=== PATIENT | female | born 1985 | race Caucasian/White ===

== ENCOUNTER 2017-09-02 08:07 | Emergency (ER) | payer SELFPAY ==
[2017-09-02] MEDS ORDERED: KETOROLAC TROMETHAMINE INJ/PF 30 MG/1 ML SDV IM ONE (08:48)
--- NOTE | 2017-09-02 09:02 | ER Document Report ---
ED Oral Problem - General Chief Complaint: Toothache Stated Complaint: FACE PAIN Time Seen by Provider: 09/02/17 08:30 Mode of Arrival: Ambulatory Information source: Patient TRAVEL OUTSIDE OF THE [place] IN LAST 30 DAYS: No - HPI Patient complains to provider of: Toothache Onset: Yesterday Notes: Patient is here with left sided dental pain started yesterday. No injury. No facial swelling. No difficulty breathing or swallowing. No fever. No nausea, vomiting, diarrhea. States that she it hurts to eat. Nothing seems to make it better. She denies any numbness, tingling, weakness. No chest pain or shortness of breath. No abdominal pain. She denies any other complaints at this time. - Related Data Allergies/Adverse Reactions: No Known Allergies Allergy (Verified 04/06/14 18:44) Past Medical History - Social History Smoking Status: Current Every Day Smoker Chew tobacco use (# tins/day): No Frequency of alcohol use: Rare Drug Abuse: None Family History: Reviewed & Not Pertinent Patient has suicidal ideation: No Patient has homicidal ideation: No Renal/ Medical History: Denies: Hx Peritoneal Dialysis Psychiatric Medical History: Reports: Hx Bipolar Disorder, Hx Depression - anxiety Past Surgical History: Reports: Hx Section - x1 - Immunizations Hx Diphtheria, Pertussis, Tetanus Vaccination: No Review of Systems - Review of Systems -: Yes All other systems reviewed and negative Physical Exam - Vital signs Vitals: Temp Pulse Resp BP Pulse Ox 98.6 F 106 H 22 H 160/120 H 97 09/02/17 08:15 09/02/17 08:15 09/02/17 08:15 09/02/17 08:15 09/02/17 08:15 - Notes Notes: GENERAL: alert, cooperative, nontoxic, no distress. Patient appears uncomfortable. Holding the left side of her face. HEAD: normocephalic, atraumatic EYES: conjunctiva pink without discharge, no external redness or swelling. EARS: no external swelling, no external redness. Canals are clear. No mastoid tenderness or redness. TMs are pearly golden with normal landmarks, no erythema, no perforation. NOSE: atraumatic, no external swelling MOUTH/THROAT: mucous membranes moist and pink. Patient is noted to have large cavity to the left upper and lower second molars. There is no gum swelling. No drainage. She has no sublingual swelling or induration. No trismus or drooling. Posterior pharynx is unremarkable. Uvula is midline. NECK: soft, supple, full range of motion, no meningismus. CHEST: no distress, lungs clear and equal throughout. No wheezing, rales, rhonchi. CARDIAC: regular rhythm, mild tachycardia, no murmur, normal capillary refill, normal pulses. BACK: full range of motion, no CVA tenderness. EXTREMITIES: full range of motion of all extremities. No redness, no swelling. NEURO: alert and oriented 3, no focal deficits, full range of motion of all extremities. PYSCH: appropriate mood, affect. Patient is cooperative. SKIN: pink, warm, dry, no rash. Course - Re-evaluation Re-evalutation: 09/02/17 08:58 Patient is nontoxic appearing stable vitals. She is here with left-sided dental pain. She is noted to have dental cavity to her left upper and lower second molars. There is no abscess. There is no sublingual swelling or induration. No sign of Colin's angina. She is in no respiratory distress. She is swallowing normally. Patient does appear to be somewhat uncomfortable. He will be given a shot of Toradol for pain. I will discharge patient home with Emir Sue with dental referrals and instructions to follow-up with a dentist at the next available appointment. She should follow-up sooner if she develops worsening pain, fever, swelling, difficulty breathing or swallowing, persistent vomiting, or for any further concerns. The patient's emergency department workup and current diagnosis were explained to the patient and or family. Follow-up instructions were provided. Medications if prescribed were discussed. Instructions for when to return to the emergency department including specific worrisome symptoms were discussed with the patient and/or family. The patient is noted to have elevated blood pressure during today's emergency department visit. The patient was informed of this finding. The patient was instructed that this may be related to pre-hypertension and requires further evaluation with a primary care provider. The patient has no hypertensive symptoms at this time. - Vital Signs Vital signs: Temp Pulse Resp BP Pulse Ox 98.6 F 106 H 22 H 160/120 H 97 09/02/17 08:15 09/02/17 08:15 09/02/17 08:15 09/02/17 08:15 09/02/17 08:15 Discharge - Discharge Clinical Impression: Pain due to dental caries Condition: Stable Disposition: HOME, SELF-CARE Instructions: [facility], Toothache ([facility]), Penicillin V K ([facility]), Dentist Additional Instructions: Take medications as prescribed. Follow-up with a dentist at the next available appointment. Follow-up sooner for worsening pain, fever, swelling, difficulty breathing or swallowing, or for any further concerns. Your blood pressure was elevated during today's visit. Have this rechecked with your doctor. Prescriptions: Diclofenac Sodium [Voltaren 50 Mg Tablet.] 50 mg PO BID #20 tablet. Penicillin V Potassium [Penicillin Vk 500 mg Tablet] 500 mg PO BID #20 tablet Forms: Elevated Blood Pressure, Smoking Cessation Education Referrals: [facility] [Provider Group] - Follow up as needed
[2017-09-02 09:15] VITALS: BP 172/86
== END 2017-09-02 09:38 | disposition home or self-care (01) ==
LOC: ER 08:07
DX: K02.9 Dental caries, unspecified (principal); K08.89 Other specified disorders of teeth and supporting structures; F17.200 Nicotine dependence, unspecified, uncomplicated; R03.0 Elevated blood-pressure reading, without diagnosis of hypertension
CPT/HCPCS: 99282; 96372; J1885

== ENCOUNTER 2017-10-01 15:48 | Emergency (ER) | payer SELFPAY ==
[2017-10-01] MEDS ORDERED: METOCLOPRAMIDE HCL INJ/PF 10 MG/2 ML SDV IV ONE (16:47)
[2017-10-01] MEDS ORDERED: DIPHENHYDRAMINE HCL 50 MG/ML VIAL IV ONE (16:48)
--- NOTE | 2017-10-01 16:50 | ER Document Report ---
ED General - General Chief Complaint: Headache Stated Complaint: BLOOD PRESSURE ISSUES Time Seen by Provider: 10/01/17 16:41 Mode of Arrival: Ambulatory Information source: Patient Notes: This is a 32-year-old female that presents to the emergency room with left- sided headache. Patient works at [employer] and was talking on the phone when she had sudden headache. This was immediately prior to arrival. She does report some nausea and dizziness. She denies any fever, chills, neck pain. Patient denies any weakness of the upper extremities. TRAVEL OUTSIDE OF THE [place] IN LAST 30 DAYS: No - HPI Onset: Just prior to arrival Onset/Duration: Sudden Quality of pain: No pain Severity: None Pain Level: Denies Associated symptoms: denies: Chest pain, Fever, Shortness of breath Exacerbated by: Denies Relieved by: Denies Similar symptoms previously: No Recently seen / treated by doctor: No - Related Data Allergies/Adverse Reactions: No Known Allergies Allergy (Verified 04/06/14 18:44) Past Medical History - General Information source: Patient - Social History Smoking Status: Never Smoker Cigarette use (# per day): No Chew tobacco use (# tins/day): No Frequency of alcohol use: None Drug Abuse: None Lives with: Spouse/Significant other Family History: Reviewed & Not Pertinent Patient has suicidal ideation: No Patient has homicidal ideation: No - Medical History Medical History: Negative Renal/ Medical History: Denies: Hx Peritoneal Dialysis Psychiatric Medical History: Reports: Hx Bipolar Disorder, Hx Depression - anxiety Past Surgical History: Reports: Hx Section - x1 - Immunizations Hx Diphtheria, Pertussis, Tetanus Vaccination: No Review of Systems - Review of Systems Constitutional: denies: Chills, Fever EENT: No symptoms reported Cardiovascular: No symptoms reported Respiratory: No symptoms reported Gastrointestinal: No symptoms reported Genitourinary: No symptoms reported Female Genitourinary: No symptoms reported Musculoskeletal: No symptoms reported Skin: No symptoms reported Hematologic/Lymphatic: No symptoms reported Neurological/Psychological: See HPI Physical Exam - Vital signs Vitals: Temp Pulse Resp BP Pulse Ox 98.2 F 97 22 H 160/94 H 99 10/01/17 16:01 10/01/17 16:01 10/01/17 16:01 10/01/17 16:01 10/01/17 16:01 Notes: Physical exam: GENERAL: 82-year-old female, alert and oriented 3, no acute distress HEAD: Atraumatic, normocephalic. EYES: Pupils equal round and reactive to light, extraocular movements intact, sclera anicteric, conjunctiva are normal. ENT: TMs normal, nares patent, oropharynx clear without exudates. Moist mucous membranes. NECK: Normal range of motion, supple without obvious mass or JVD. LUNGS: Breath sounds clear to auscultation bilaterally and equal. No wheezes rales or rhonchi. HEART: Regular rate and rhythm without murmurs, rubs or gallops. ABDOMEN: Soft, normoactive bowel sounds. No tenderness to palpation. No guarding, no rebound. No masses appreciated. EXTREMITIES: Normal range of motion, no pitting or edema. No clubbing or cyanosis. NEUROLOGICAL: Cranial nerves II through XII grossly intact. Normal speech, moving all extremities. Motor 5/5, sensory grossly intact, cerebellar (finger to nose) is good. Patient's neck is supple. PSYCH: Normal mood, normal affect. SKIN: Warm, Dry, normal turgor, no rashes or lesions noted. Course - Re-evaluation Re-evalutation: 10/01/17 20:18 Note: Patient was given IV Reglan and IV Benadryl for the headache. She has had significant improvement. She states she feels much better. Head CT showed no acute bleed. I did discuss with her the workup would include a spinal tap to reach a sensitivity of 100% rule out a bleed (she is absolutely against this) . Of significance, the patient's headache started shortly before arrival so was done early in the process which greatly enhances the sensitivity of the test. Patient was hypertensive initially and her blood pressures down. I will give her referral to the [facility] for blood pressure check. - Vital Signs Vital signs: Temp Pulse Resp BP Pulse Ox 98.3 F 92 18 153/97 H 98 10/01/17 20:26 10/01/17 20:26 10/01/17 20:26 10/01/17 20:26 10/01/17 20:26 - Laboratory Result Diagrams: 10/01/17 17:35 10/01/17 18:26 Laboratory results interpreted by me: 10/01/17 17:35 WBC 12.0 H Absolute Neutrophils 8.9 H - Diagnostic Test Radiology reviewed: Image reviewed, Reports reviewed - CT of the head shows no acute bleed Discharge - Discharge Clinical Impression: Headache, Pre-hypertension Condition: Stable Disposition: HOME, SELF-CARE Instructions: Headache ([facility]), Reglan ([facility]) Additional Instructions: As we discussed, the CT had look quite good today. Your labs look very good. I would rest, drink plenty fluids, take headache medicine as prescribed. You can take ibuprofen as well. Your blood pressure was elevated initially and it did come down nicely, but it is still considered in the pre-hypertension range. I recommend getting a recheck blood pressure in the [facility]. Return to the emergency room for worsening headache, fever (temperature greater than 100.5) or any concerns or getting worse. Prescriptions: Metoclopramide HCl [Reglan 10 mg Tablet] 1 - 2 tab PO ASDIR PRN #14 tablet PRN Reason: Forms: Return to Work Referrals: [facility] [Provider Group] - Follow up as needed
--- NOTE | 2017-10-01 17:24 | RADIOLOGY REPORT (SQ) ---
EXAM DESCRIPTION: CT HEAD WITHOUT COMPLETED DATE/TIME: 10/01/2017 5:12 pm REASON FOR STUDY: left sided headache COMPARISON: None. TECHNIQUE: Axial images acquired through the brain without intravenous contrast. Images reviewed wi th bone, brain and subdural windows. Additional sagittal and coronal reconstructions were generated. Images stored on PACS. All CT scanners at this facility use dose modulation, iterative reconstruction, and/or weight based d osing when appropriate to reduce radiation dose to as low as reasonably achievable (ALARA). [facility]: Dose Right [facility]: CareDose [facility]: Dose Right [facility]: Teradose 4D [facility]: Smart Revstr RADIATION DOSE: CT Rad equipment meets quality standard of care and radiation dose reduction techniq ues were employed. CTDIvol: 53.2 mGy. DLP: 991 mGy-cm. mGy. LIMITATIONS: None. FINDINGS: VENTRICLES: Normal size and contour. CEREBRUM: No masses. No hemorrhage. No midline shift. No evidence for acute infarction. Normal gra y/white matter differentiation. No areas of low density in the white matter. CEREBELLUM: No masses. No hemorrhage. No alteration of density. No evidence for acute infarction. EXTRAAXIAL SPACES: No fluid collections. No masses. ORBITS AND GLOBE: No intra- or extraconal masses. Normal contour of globe without masses. CALVARIUM: No fracture. PARANASAL SINUSES: No fluid or mucosal thickening. SOFT TISSUES: No mass or hematoma. OTHER: No other significant finding. IMPRESSION: NORMAL BRAIN CT WITHOUT CONTRAST. EVIDENCE OF ACUTE STROKE: NO. COMMENT: Quality ID # [id number]: Final reports with documentation of one or more dose reduction techniques (e.g., Automated exposure control, adjustment of the mA and/or kV according to patient size, use of iterative reconstruction technique) TECHNICAL DOCUMENTATION: JOB ID: [id number] [employer]- All Rights Reserved Reading location - IP/workstation name: [email or web address]
[2017-10-01 17:43] LABS: ABSOLUTE BASOPHILS # (AUTO) 0.1 10^3/uL (0.0-0.2); ABSOLUTE EOSINOPHILS # (AUTO) 0.3 10^3/uL (0.0-0.6); ABSOLUTE LYMPHOCYTES (AUTO) 2.2 10^3/uL (0.5-4.7); ABSOLUTE MONOCYTES (AUTO) 0.5 10^3/uL (0.1-1.4); ABSOLUTE NEUT (AUTO) 8.9 10^3/uL (1.7-8.2); BASOPHILS % (AUTO) 0.5 % (0-2); EOSINOPHILS % (AUTO) 2.4 % (0-6); HEMATOCRIT 40.4 % (36.0-47.0); HEMOGLOBIN 13.7 g/dL (12.0-15.5); LYMPHOCYTES % (AUTO) 18.2 % (13-45); MEAN CORPUSCULAR HEMOGLOBIN 28.5 pg (27.0-33.4); MEAN CORPUSCULAR HGB CONC 33.9 g/dL (32.0-36.0); MEAN CORPUSCULAR VOLUME 84 fl (80-97); MONOCYTES % (AUTO) 4.3 % (3-13); PLATELET COUNT 358 10^3/uL (150-450); RED BLOOD COUNT 4.81 10^6/uL (3.72-5.28); SEGMENTED NEUTROPHILS % (AUTO) 74.6 % (42-78); TOTAL CELLS COUNTED % (AUTO) 100 %
[2017-10-01 18:49] LABS: ALANINE AMINOTRANSFERASE 32 U/L (9-52); ALBUMIN 3.7 g/dL (3.5-5.0); ALKALINE PHOSPHATASE 108 U/L (38-126); ANION GAP 12 (5-19); ASPARTATE AMINO TRANSFERASE 26 U/L (14-36); BILIRUBIN,DIRECT 0.3 mg/dL (0.0-0.4); BILIRUBIN,TOTAL 0.3 mg/dL (0.2-1.3); BLOOD UREA NITROGEN 16 mg/dL (7-20); CALCIUM 9.3 mg/dL (8.4-10.2); CARBON DIOXIDE 23 mmol/L (22-30); CHLORIDE 107 mmol/L (98-107); GLUCOSE 105 mg/dL (75-110); POTASSIUM 3.9 mmol/L (3.6-5.0); SODIUM 141.5 mmol/L (137-145); TOTAL PROTEIN 6.8 g/dL (6.3-8.2)
[2017-10-01 20:32] VITALS: BP 153/97
== END 2017-10-01 20:31 | disposition home or self-care (01) ==
LOC: ER 15:48
DX: R03.0 Elevated blood-pressure reading, without diagnosis of hypertension (principal); R51 Headache; R11.0 Nausea; R42 Dizziness and giddiness
CPT/HCPCS: 99284; 96374; 96375; 36415; 84702; 85025; 80053; 70450; J1200; J2765

== ENCOUNTER 2018-01-14 05:07 | Emergency (ER) | payer SELFPAY ==
[2018-01-14] MEDS ORDERED: KETOROLAC TROMETHAMINE INJ/PF 30 MG/1 ML SDV IV PRN (06:45)
[2018-01-14] MEDS ORDERED: FENTANYL CITRATE INJ/PF 100 MCG/2 ML AMPUL IV PRN (06:45)
[2018-01-14] MEDS ORDERED: NORMAL SALINE 1000 ML 1,000 ML IV PRN (09:20)
[2018-01-14] MEDS ORDERED: DIPHENHYDRAMINE HCL 50 MG/ML VIAL IV PRN (09:20)
[2018-01-14] MEDS ORDERED: METOCLOPRAMIDE HCL INJ/PF 10 MG/2 ML SDV IV PRN (09:20)
--- NOTE | 2018-01-14 09:56 | ER Document Report ---
Doctor's Note Notes: 01/14/18 09:53 HPI: Room 1: This is a female patient history of migraines to the emergency department for evaluation of headache. States it started 3 days ago. Not the worst headache of her life. Did not occur suddenly. States that it was a slow onset, mild headache and has progressively gotten worse over the last 3 days. She was seen here approximately 2-3 months ago for the same symptoms. At that time she had an MRI of the brain which was unremarkable. Patient states that she has hypertension but does not take anything for it. Having nausea and vomiting. No severe neck stiffness. No fever. Does have photophobia and did have a sense of an aura. Past medical history: Hypertension, migraines Past surgical history: Social history: Endorses tobacco abuse but denies alcohol or drugs FH: Reviewed and negative for SAH or aneurysm Review of systems: Constitutional: denies: Chills, Diaphoresis, Fever, Malaise, Weakness EENT: denies: Eye discharge, Blurred vision, Tearing, Double vision, Nose congestion, Nose discharge, Throat swelling, Mouth pain Cardiovascular: denies: Palpitations, Heart racing, Orthopnea, Dyspnea, Chest pain Respiratory: denies: Cough, Hurts to breathe, Wheezing, Shortness of breath Gastrointestinal: denies: Abdominal pain, Diarrhea,Black stools, bright red blood in stool. Does complain of nausea and vomiting Genitourinary: denies: Burning, Dysuria, Discharge, Frequency, Flank pain, Hematuria Musculoskeletal: denies: Joint pain, Joint swelling, Muscle pain, Muscle stiffness, back pain Hematologic/Lymphatic: denies: Anemia, Easy bleeding, Easy bruising, Blood clots Neurological/Psychological: denies: Confusion, Dementia, Depression, Loss of consciousness. Does complain of migraine headache at this time Skin: No lesions, no masses, no skin breakdown, no abscesses Physical exam: General: Alert no acute distress HEENT: Atraumatic, normocephalic, pupils equal round react to light and accommodation, extraocular muscles are intact, nose is non tender, posterior pharynx is without erythema or exudate. Tongue is unremarkable Heart: Heart with regular rate and rhythm, no murmurs, no rubs, no clicks Lungs: Lungs clear to auscultation bilaterally, no wheezes, rhonchi, rales Abdomen: Abdomen is soft, nontender, nondistended, normal bowel sounds Neuro: cranial nerves II through XII intact, reflexes intact, sensation intact, neg pronator drift, fundoscop exam normal Extremities:Moving all extremities. Equal strength bilaterally in the upper lower extremities. No significant deformity Skin: No lesions. Skin intact Psych: Normal insight. Normal judgment Discharge - Discharge Clinical Impression: Migraine headache with aura Qualifiers: Status migrainosus presence: without status migrainosus Intractability: not intractable Qualified Code(s): G43.109 - Migraine with aura, not intractable, without status migrainosus Hypertension Qualifiers: Hypertension type: unspecified Qualified Code(s): I10 - Essential (primary) hypertension Condition: Good Disposition: HOME, SELF-CARE Instructions: Headache ([facility]), High Blood Pressure ([facility]) Prescriptions: Losartan Potassium [Cozaar 50 mg Tablet] 50 mg PO DAILY 30 Days #30 tablet Ondansetron [Zofran Odt 4 mg Tablet] 1 - 2 tab PO Q4H PRN #15 tab.rapdis PRN Reason: For Nausea/Vomiting Referrals: JAMEL PRADO MD [NO LOCAL MD] - Follow up in 3-5 days Course - Re-evaluation Re-evalutation: 01/14/18 09:56 Feeling much better, had recent neuroimaging which was negative. Not worse KELLER of life. Will d/c on BP meds as well 01/14/18 09:57
[2018-01-14 10:00] VITALS: BP 152/86
[2018-01-14] MEDS ORDERED: KETOROLAC TROMETHAMINE INJ/PF 30 MG/1 ML SDV IV ONE (10:00)
[2018-01-14] MEDS ORDERED: FENTANYL CITRATE INJ/PF 100 MCG/2 ML AMPUL IV ONE (10:00)
[2018-01-14 11:11] LABS: APPEARANCE,URINE CLEAR; BILIRUBIN,URINE NEGATIVE (NEGATIVE); COLOR,URINE YELLOW; GLUCOSE, URINE NEGATIVE (NEGATIVE); KETONES,URINE NEGATIVE (NEGATIVE); LEUKOCYTE ESTERASE,URINE NEGATIVE (NEGATIVE); NITRITE,URINE NEGATIVE (NEGATIVE); PROTEIN,URINE NEGATIVE (NEGATIVE); URINE SPECIFIC GRAVITY 1.019; UROBILINOGEN,URINE NEGATIVE mg/dL (<2.0)
== END 2018-01-14 10:18 | disposition home or self-care (01) ==
LOC: ER 05:07
DX: G43.109 Migraine with aura, not intractable, without status migrainosus (principal); R11.2 Nausea with vomiting, unspecified; I10 Essential (primary) hypertension; Z76.0 Encounter for issue of repeat prescription
CPT/HCPCS: 81001; 81025; 96361; 96374; 96375; 99283

== ENCOUNTER 2020-03-15 13:18 | Emergency (ER) | payer SELFPAY ==
[2020-03-15] MEDS ORDERED: HYDROCODONE/ACETAMINOPHEN 5-325 MG TABLET PO ONE (14:29)
[2020-03-15] MEDS ORDERED: IBUPROFEN 600 MG TABLET PO ONE (14:29)
--- NOTE | 2020-03-15 14:33 | ER Document Report ---
ED General - General Stated Complaint: ANKLE PAIN Time Seen by Provider: 03/15/20 14:25 Mode of Arrival: Ambulatory Information source: Patient Notes: Patient is a 35-year-old obese female coming in today with left foot and ankle pain. States she twisted and injured it about a week ago. Today she fell and twisted it again this time hearing a pop. She is ambulatory but with significant pain and swelling. No previous fractures. No surgeries in the past on this area. TRAVEL OUTSIDE OF THE [place] IN LAST 30 DAYS: No - Related Data Allergies/Adverse Reactions: No Known Allergies Allergy (Verified 03/15/20 14:25) Past Medical History - General Information source: Patient - Social History Smoking Status: Unknown if Ever Smoked Family History: Reviewed & Not Pertinent Renal/ Medical History: Denies: Hx Peritoneal Dialysis Psychiatric Medical History: Reports: Hx Bipolar Disorder, Hx Depression - anxiety Past Surgical History: Reports: Hx Section - x1 - Immunizations Hx Diphtheria, Pertussis, Tetanus Vaccination: No Review of Systems - Review of Systems Notes: Constitutional: No fevers. No chills. EENT: No eye redness. No eye pain. No ear pain. No sore throat. Cardiovascular: No chest pain. No palpitations. Respiratory: No cough. No shortness of breath. No respiratory distress. Gastrointestinal: No abdominal pain. No nausea, vomiting, or diarrhea. Genitourinary: Atraumatic. No lesions. No pain. No discharge. Musculoskeletal: Atraumatic. No swelling. No deformities. Left ankle and foot pain Skin: No rash or lesions. Lymphatic: No swollen lymph nodes. Neurologic: No headache. No syncope. Psychiatric: No suicidal or homicidal ideation. Physical Exam - Vital signs Vitals: Temp Pulse Resp BP Pulse Ox 99.2 F 102 H 16 153/77 H 99 03/15/20 13:25 03/15/20 13:25 03/15/20 13:25 03/15/20 13:25 03/15/20 13:25 - Notes Notes: General: Well-developed, well-nourished. In no acute distress. Non-toxic appearing. Cardiac: Well-perfused. Regular rate and rhythm. No murmurs, rubs, or gallops. Pulmonary: No respiratory distress. No cyanosis. Bilateral lung fiels are clear to auscultation. Abdominal: Non-distended. Non-rigid. Bowels sounds are present in all four quadrants. No guarding or rebound. HEENT: Head is atraumatic. Conjunctivae not reddened. No tearing. PERRL. EOMI. Orbits atraumatic. No periorbital swelling or erythema. Oropharynx is without erythema, swelling, or exudates. Neck: Supple. No adenopathy. No meningismus. Dermatologic: Warm with good turgor. No rash. Atraumatic. Chest: Atraumatic. No chest wall tenderness to palpation. Musculoskeletal: Left lower extremity is examined. There is moderate soft tissue swelling over the lateral malleolus. There is no point bony tenderness or deformity. Diffuse proximal left foot tenderness to palpation. Normal plantar and dorsiflexion as well as inversion and eversion. Neurovascularly intact Genitourinary: Examination deferred Neurologic: No gross neurologic deficits. Psychiatric: Normal mood. Course - Re-evaluation Re-evalutation: 03/15/20 15:14 X-rays of the left foot and left ankle are negative for acute injury. We will Wibler wrap her left foot and ankle. She exceeds the weight limit for the crutc hes. Will offer her a prescription for a walker. Elgin No. 6 to go home with. Will describe naproxen sodium No. 20 - Vital Signs Vital signs: Temp Pulse Resp BP Pulse Ox 99.2 F 102 H 16 153/77 H 99 03/15/20 13:25 03/15/20 13:25 03/15/20 13:25 03/15/20 13:25 03/15/20 13:25 Discharge - Discharge Clinical Impression: Elevated blood pressure reading Ankle sprain Qualifiers: Encounter type: initial encounter Involved ligament of ankle: unspecified ligament Laterality: left Qualified Code(s): S93.402A - Sprain of unspecified ligament of left ankle, initial encounter Condition: Good Disposition: HOME, SELF-CARE Instructions: Wilber Wrap ([facility]), Ice & Elevation ([facility]), Ice Packs ([facility]), Oral Narcotic Medication ([facility]), Sprained Ankle ([facility]) Additional Instructions: You need to try to remain non-weightbearing on this ankle until it heals. Keep it elevated at home. Ice 20 minutes/h for swelling. Naproxen sodium every 12 hours for pain. Elgin 1 tab every 6 hours for severe pain only. Prescriptions: Naproxen 500 mg PO BID 10 Days #20 tablet Forms: Elevated Blood Pressure, Return to Work Referrals: CRISTOBAL CATES MD [ACTIVE STAFF] - Follow up in 1 week
--- NOTE | 2020-03-15 15:01 | RADIOLOGY REPORT (SQ) ---
EXAM DESCRIPTION: ANKLE LEFT COMPLETE IMAGES COMPLETED DATE/TIME: 03/15/2020 2:53 pm REASON FOR STUDY: twisted COMPARISON: None. NUMBER OF VIEWS: Three views. TECHNIQUE: AP, lateral, and oblique radiographic images acquired of the left ankle. LIMITATIONS: None. FINDINGS: MINERALIZATION: Normal. BONES: No fracture or dislocation. Prominent plantar calcaneal spur. JOINTS: No effusions. SOFT TISSUES: No soft tissue swelling. No foreign body. OTHER: No other significant finding. IMPRESSION: Calcaneal spur. No acute osseous finding. TECHNICAL DOCUMENTATION: JOB ID: [id number] 2010 [employer]- All Rights Reserved Reading location - IP/workstation name: [email or web address]
--- NOTE | 2020-03-15 15:03 | RADIOLOGY REPORT (SQ) ---
EXAM DESCRIPTION: FOOT LEFT COMPLETE IMAGES COMPLETED DATE/TIME: 03/15/2020 2:54 pm REASON FOR STUDY: twisted COMPARISON: None. NUMBER OF VIEWS: Three views. TECHNIQUE: AP, lateral and oblique radiographic images acquired of the left foot. LIMITATIONS: None. FINDINGS: MINERALIZATION: Normal. BONES: Final fracture or dislocation. Prominent plantar calcaneal spur. JOINTS: No effusions. SOFT TISSUES: No soft tissue swelling. No foreign body. OTHER: No other significant finding. IMPRESSION: Calcaneal spur. No acute finding. TECHNICAL DOCUMENTATION: JOB ID: [id number] [employer]- All Rights Reserved Reading location - IP/workstation name: [email or web address]
[2020-03-15] MEDS ORDERED: HYDROCODONE/ACETAMINOPHEN 5-325 MG (6 TAB/ER DISP) PO PRN (15:19)
[2020-03-15 15:33] VITALS: BP 151/96
== END 2020-03-15 15:35 | disposition home or self-care (01) ==
LOC: ER 13:18
DX: S93.402A Sprain of unspecified ligament of left ankle, initial encounter (principal); R03.0 Elevated blood-pressure reading, without diagnosis of hypertension; W19.XXXA Unspecified fall, initial encounter
CPT/HCPCS: 99284